=== PATIENT | female | born 1960 | race Caucasian/White ===

== ENCOUNTER → 2023-01-18 15:20 | Outpatient (CLI) | payer BC, SELFPAY ==
[2023-01-18 16:15] LABS: Erythrocyte Sedimentation Rate 13 MM/HR (0-20)
[2023-01-18 16:16] LABS: C-Reactive Protein Quant 0.7 mg/dL (<1.0); Creatine Kinase 107 U/L (30-135)
[2023-01-18 16:20] LABS: Rheumatoid Factor < 8.6 IU/mL (<12.0)
[2023-01-22 02:36] LABS: Angiotensin Converting Enzyme 59 U/L (14-82)
[2023-01-22 13:24] LABS: Cytoplasmic C-ANCA <1:20 titer (Neg:<1:20); Perinuclear P-ANCA <1:20 titer (Neg:<1:20)
[2023-01-22 18:21] LABS: CCP Antibodies IgG/IgA 7 units (0-19)
[2023-01-23 19:56] LABS: ANA Screen, IFA Positive (.)
[2023-01-25 12:16] LABS: Aureobasidium pullulans IgG Negative (Negative); Micropolyspora faeni IgG Negative (Negative); Pigeon Serum IgG Negative (Negative); Thermoactinomyces sacchari IgG Negative (Negative); Thermoactinomyces vulgaris IgG Negative (Negative)
== END ==
PROVIDERS: PCP Family Medicine; Referring Provider Internal Medicine; Visit Provider Internal Medicine
DX: J84.9 Interstitial pulmonary disease, unspecified (principal)
CPT/HCPCS: 36415; 82164; 82550; 85651; 86038; 86140; 86200; 86256; 86331; 86430; 86602; 86606; 86609; 86671; 99215

== ENCOUNTER → 2023-01-25 14:40 | Outpatient (CLI) | payer BC, SELFPAY | PROVIDERS: PCP Family Medicine; Referring Provider Internal Medicine; Visit Provider Internal Medicine | DX: R06.00 Dyspnea, unspecified (principal); Z87.891 Personal history of nicotine dependence; J98.8 Other specified respiratory disorders | CPT/HCPCS: 94060; 94726; 94729 ==

== ENCOUNTER → 2023-05-02 12:56 | Outpatient (CLI) | payer BC, SELFPAY | PROVIDERS: PCP Family Medicine; Referring Provider Internal Medicine; Visit Provider Internal Medicine | DX: J84.9 Interstitial pulmonary disease, unspecified (principal); R06.02 Shortness of breath; Z87.891 Personal history of nicotine dependence | CPT/HCPCS: 94060; 94726; 94729 ==

== ENCOUNTER → 2024-04-16 09:43 | Outpatient (CLI) | payer OTHER, SELFPAY | PROVIDERS: PCP Family Medicine; Referring Provider Internal Medicine; Visit Provider Internal Medicine | DX: R06.02 Shortness of breath (principal); J84.9 Interstitial pulmonary disease, unspecified; Z87.891 Personal history of nicotine dependence; R94.2 Abnormal results of pulmonary function studies | CPT/HCPCS: 94060; 94726; 94729 ==

== ENCOUNTER → 2025-04-29 11:02 | Outpatient (CLI) | payer OTHER, SELFPAY | LOC: RESP 11:02 | PROVIDERS: PCP Family Medicine; Referring Provider Internal Medicine; Visit Provider Internal Medicine | DX: R06.02 Shortness of breath (principal); J84.9 Interstitial pulmonary disease, unspecified; Z87.891 Personal history of nicotine dependence; R94.2 Abnormal results of pulmonary function studies | CPT/HCPCS: 94060; 94726; 94729 ==